=== PATIENT | female | born 2000 | race Hispanic/Latino ===

== ENCOUNTER 2024-10-05 06:56 | Day surgery (SDC) | payer MEDICARE ==
[2024-10-05] VITALS (10 sets, daily range): BP systolic 107–132; BP diastolic 58–89; PULSE 78–95; RESP 15–24; TEMP 97.4–97.9
[~2024-10-05] VITALS: Ht 149.9 cm; Wt 86.2 kg
[~2024-10-05 06:56] MED LIST: ACET-66 PO; ASPI-1443 PO; CELE-146 PO; CHOL500050 PO; DESO1TAB35 PO; HYDR-3421 PO; L.AC1CAP6 PO; LEVE-21 PO; OMEP40CA21 PO
[2024-10-05] MEDS: 0.9%NACL 1000ML 1,000 ML IV ONE (08:43)
[2024-10-05] MEDS ORDERED: proPOFol 10 MG/ML 20ML VIAL IV ONE (10:07)
[2024-10-05] MEDS: IpraTROPium/alBUTERol SULFATE 3 ML SOLUTION IH ONE (10:36)
== END 2024-10-05 11:20 | disposition home or self-care (01) ==
LOC: DAH 06:56 → ENDO 06:56
PROVIDERS: ATTEND Internal Medicine Gastroenterology
DX: R10.13 Epigastric pain (principal); K29.50 Unspecified chronic gastritis without bleeding; K31.7 Polyp of stomach and duodenum; K92.1 Melena; R14.0 Abdominal distension (gaseous); E66.01 Morbid (severe) obesity due to excess calories; R56.9 Unspecified convulsions; Q90.9 Down syndrome, unspecified; Z90.49 Acquired absence of other specified parts of digestive tract; Z79.82 Long term (current) use of aspirin; Z79.899 Other long term (current) drug therapy
CPT/HCPCS: 43251; 84703; 36415; 43239; 94640; J7030; J2704; A4620; A4215 ×2; A4223; A4222; A4221; A4663; A4606; J3490